=== PATIENT | male | born 1940 | race Caucasian/White ===

== ENCOUNTER 2017-06-24 08:42 | Outpatient (CLI) | payer MEDICARE, BC ==
[2017-06-24 11:25] LABS: Hematocrit 43.9 % (42.0-52.0); Mean Platelet Volume 8.4 fL (7.4-10.4); Red Blood Cell (RBC) Count 4.22 mill/uL (4.70-6.10); White Blood Cell (WBC) Count 8.9 thou/uL (4.8-10.8)
[2017-06-24 11:32] LABS: Prothrombin Time 13.3 SEC (12.0-14.7)
[2017-06-24 11:42] LABS: Bilirubin Negative (Negative); Blood, Urine Negative (Negative); Glucose, Urine (Dipstick) Negative (Negative); Ketone, Urine Negative (Negative); Nitrite Negative (Negative); Protein, Urine (Dipstick) Negative (Neg-Trace); Urobilinogen 0.2 mg/dL (0.2-1.0)
[2017-06-24 11:45] LABS: Bacteria/HPF None Seen HPF (None Seen); Hyaline Casts/LPF 0-3 HYALINE CAST LPF (0-3 Hyaline); Squamous Epithelial None Seen HPF (0-3); WBC/HPF 0-3 HPF (0-3)
[2017-06-24 11:52] LABS: Anion Gap 10 mmol/L (10-20); BUN (Urea Nitrogen) 18 mg/dL (8.4-25.7); Calc. Creatinine Clearance 0 mL/min (70-130); Calcium 9.8 mg/dL (7.8-10.44); Carbon Dioxide 30 mmol/L (23-31); Chloride 103 mmol/L (98-107); Estimated GFR-MDRD 79
--- NOTE | 2017-06-24 12:14 | EKG ---
Test Reason : PREOP Blood Pressure : / mmHG Vent. Rate : 066 BPM Atrial Rate : 066 BPM P-R Int : 186 ms QRS Dur : 134 ms QT Int : 416 ms P-R-T Axes : 056 116 063 degrees QTc Int : 436 ms Sinus rhythm with Possible Left atrial enlargement Right bundle branch block Left posterior fascicular block Bifascicular block Abnormal ECG No previous ECGs available Confirmed by DR. Jim PAIGE ([id number]) on 06/24/2017 12:13:30 PM Referred By: CHARISSE Confirmed By:DR. Jim PAIGE
== END 2017-06-24 08:43 | disposition home or self-care (01) ==
LOC: LABBT 08:42
PROVIDERS: ATTEND Orthopaedic Surgery
DX: Z01.818 Encounter for other preprocedural examination (principal); M16.12 Unilateral primary osteoarthritis, left hip
CPT/HCPCS: 80048; 81001; 85027; 85610; 86850; 86900; 86901; 87081; 93005; 93010

== ENCOUNTER 2018-12-16 15:07 | Outpatient (CLI) | payer MEDICARE, BC ==
--- NOTE | 2018-12-16 16:00 | RAD ---
Exam: 3 views of the lumbosacral spine HISTORY: Bilateral foot numbness, right greater than left. COMPARISON: None FINDINGS: 3 lateral views of the lumbosacral spine shows diffuse intervertebral disc space narrowing and large osteophytes throughout the lumbar spine. Alignment is unchanged with flexion and extension. Posterior facet arthrosis is seen throughout the lumbar spine. IMPRESSION: Severe degenerative changes of the lumbar spine with unchanged alignment with bending
--- NOTE | 2018-12-16 16:49 | MRI ---
MRI LUMBAR SPINE NONCONTRAST: CLINICALLY INDICATIONS: Lumbar stenosis. Neurogenic claudication. FINDINGS: There is prominent marrow edema involving the inferior one-half of the L3 vertebral body and the supe rior one-half of the L4 vertebral body. No intervening disk space fluid is present. There is genera lized diminished T1 and T2 signal of the intervening L3-L4 disk space. Multilevel facet arthropathy is present bilaterally, moderate to severe in degree. There is an S-shaped curvature of the lumbar s pine, convexed to the left superiorly and to the right inferiorly. The conus medullaris terminates a t the T12-L1 level. L5-S1: Broad-based disk osteophyte is present. There is mild narrowing of the central canal. Mild left neural foraminal stenosis is present. There is no significant right foraminal compromise. L4-L5: Moderate central canal stenosis is present, as a result of broad-based disk osteophyte, when combined with bilateral facet hypertrophy. There is impingement of the traversing left L5 nerve root , with prominent stenosis of the left subarticular zone. There is also impingement of the traversing right L5 nerve root. There is moderate left and mild right neural foraminal narrowing. L3-L4: Severe central canal stenosis is present due to broad-based disk osteophyte and bilateral fac et hypertrophy. There is moderate bilateral neural foraminal stenosis. L2-L3: Moderate central canal stenosis is present, more notable on the right, due to broad-based dis k osteophyte, prominence of epidural fat, and facet osteoarthritis. There is crowding of the chip ing right L3 nerve root, as well. Mild to moderate right and mild left neural foraminal narrowing is present. L1-L2: There is mild central canal stenosis, more notable to the right due to scoliotic curvature, w ith crowding of the nerve roots of the cauda equina, localizing to the right subarticular zone. Ther e is mild left and mild to moderate right neural foraminal narrowing. T12-L1: There is prominent height loss of the T12-L1 disk space with apparent partial osseous fusion of the vertebra, to the right of midline. IMPRESSION: Severe multilevel degenerative change of the lumbar spine. Findings are most pronounced at the L3-L4 level, where there is obliteration of the thecal sac. A telephone call of these findings was placed to the patient's physician, Vinny Rodriguez, at the time of dictation ([id number] hours). CODE CR POS: OFF
== END 2018-12-16 15:08 | disposition home or self-care (01) ==
LOC: TBSIIMAG 15:07
PROVIDERS: ATTEND Anesthesiology Pain Medicine
DX: M48.062 Spinal stenosis, lumbar region with neurogenic claudication (principal); M47.816 Spondylosis without myelopathy or radiculopathy, lumbar region
CPT/HCPCS: 72100; 72148

== ENCOUNTER 2019-02-08 10:20 | Outpatient (CLI) | payer MEDICARE, BC ==
[2019-02-08 13:32] LABS: Hemoglobin 14.2 g/dL (14.0-18.0); Mean Corpuscular HGB CONC 33.5 g/dL (32.0-36.0); Mean Corpuscular Hemoglobin 33.9 pg (27.0-31.0); Mean Platelet Volume 8.7 fL (7.4-10.4); Platelet Count 210 thou/uL (130-400); RBC Distribution Width 11.8 % (11.5-14.5); Red Blood Cell (RBC) Count 4.19 mill/uL (4.70-6.10); White Blood Cell (WBC) Count 7.5 thou/uL (4.8-10.8)
[2019-02-08 13:59] LABS: Anion Gap 12 mmol/L (10-20); BUN (Urea Nitrogen) 16 mg/dL (8.4-25.7); Calc. Creatinine Clearance 0 mL/min (70-130); Calcium 9.6 mg/dL (7.8-10.44); Carbon Dioxide 27 mmol/L (23-31); Chloride 105 mmol/L (98-107); Estimated GFR-MDRD 75; Glucose 94 mg/dL (83-110); Potassium 4.4 mmol/L (3.5-5.1); Sodium 140 mmol/L (136-145)
== END 2019-02-08 10:21 | disposition home or self-care (01) ==
LOC: LABBT 10:20
PROVIDERS: ATTEND Neurological Surgery
DX: Z01.818 Encounter for other preprocedural examination (principal); M48.062 Spinal stenosis, lumbar region with neurogenic claudication
CPT/HCPCS: 80048; 85027; 93005; 93010

== ENCOUNTER 2019-02-10 05:31 | Day surgery (SDC) | payer MEDICARE, BC ==
[2019-02-08 10:59] VITALS: BMI 28.3
--- NOTE | 2019-02-09 13:18 | HP ---
HISTORY OF PRESENT ILLNESS: Mr. Kumar is a 78-year-old man, presenting today for evaluation of severe lower back pain as well as neurogenic claudication symptoms with an MRI from [place] that reveals severe spinal canal stenosis at L3-L4 as well as significant lumbar scoliosis. He has been seeing Dr. Rodriguez, who provided epidural injections and facet blocks with limited relief and was referred back to us for surgical evaluation, which he would like to pursue if possible. PAST MEDICAL HISTORY: Significant for knee and hip osteoarthritis, prostate cancer. CURRENT MEDICATIONS: Include; 1. Aspirin. 2. Resveratrol. 3. Lutein. 4. Bicalutamide. 5. Rosuvastatin. ALLERGIES: NO KNOWN DRUG ALLERGIES. PAST SURGICAL HISTORY: Skin cancer resection, prostatectomy, tonsil and adenoidectomy, parathyroidectomy, vasectomy, and a left total hip replacement. PHYSICAL EXAMINATION: He is alert and oriented x3. Gait is mildly antalgic. Lower extremity motor exam is normal. Reflexes equal and present bilaterally at the patella. ASSESSMENT: Lumbar spinal stenosis with neurogenic claudication. PLAN: Dr. Wolfe met with the patient, reviewed imaging, advocated for an L3-L4 decompression. He explained to the patient the risks, benefits, and alternatives to the procedure. The patient expressed understanding and elected to move forward with surgery as discussed. I do believe the patient is mentally competent and capable of making medical decisions for himself, and we will move with surgery as planned. Job ID: [id number]
[2019-02-10] MEDS ORDERED: Thrombin 5000 UNITS/5 ML VIAL ONE (06:16)
[2019-02-10] MEDS ORDERED: Bupivacaine HCl 0.5%/Epinephrine 1:200,000/PF 30 ml Vial ONE (06:16)
[2019-02-10] MEDS ORDERED: Fentanyl 100 MCG/2 ML VIAL ONE ×2 (06:17→08:39)
[2019-02-10] MEDS ORDERED: Lidocaine 2% Jelly 5 ML TUBE ONE (06:17)
[2019-02-10] MEDS ORDERED: Tamsulosin HCl 0.4 MG CAP ONE (08:39)
--- NOTE | 2019-02-10 10:00 | OP ---
DATE OF PROCEDURE: 02/10/2019 DIRECTOR FIN[employer]CIAL SERVICES: Kannan Chauhan PA-C INDICATIONS FOR PROCEDURE: Pain. DIAGNOSIS: Lumbar stenosis with neurogenic claudication. PROCEDURE PERFORMED: L3-4 lumbar decompression. ANESTHESIA: General. DESCRIPTION OF PROCEDURE: The patient was brought into the operating room and placed under general anesthesia. He was flipped from the supine to prone position on the operating room table. A linear incision was planned over the L3-4 segment. After prepping and draping and after an appropriate operative pause, the incision was created. The soft tissues were swept away from midline. A self-retaining retractor was placed for optimal exposure. After confirming the appropriate level with C-arm fluoroscopy, an Adson rongeur, a high-speed cutting drill bit, and 2, 3 and 4 mm Kerrisons were used to perform a laminectomy along the inferior aspect of L3 and the superior aspect of L4. The laminectomy was extended laterally to encompass the medial aspect of the facet joints. The lateral recesses were decompressed as well as the central canal. After the decompression, the wound was irrigated. Hemostasis was maintained throughout. The wound was then closed in anatomic layers and a pressure dressing was applied. There were no known procedural complications. Job ID: [id number]
== END 2019-02-10 12:00 | disposition home or self-care (01) ==
LOC: SDC 05:31
PROVIDERS: ATTEND Neurological Surgery
PROC: 01NB0ZZ Release Lumbar Nerve, Open Approach (ICD-10-PCS; principal; 2019-02-10)
DX: M48.062 Spinal stenosis, lumbar region with neurogenic claudication (principal); M41.9 Scoliosis, unspecified; Z79.82 Long term (current) use of aspirin; Z79.899 Other long term (current) drug therapy
CPT/HCPCS: 76000; J0131; J0670; J0690; J3010

== ENCOUNTER 2020-11-20 08:32 | Outpatient (CLI) | payer MEDICARE, BC ==
[2020-11-20] MEDS ORDERED: Iopamidol 370 76% 50 ML VIAL FS ONE (14:06)
[2020-11-20] MEDS ORDERED: Iopamidol 370 76% 100 ML VIAL ONE (14:06)
== END 2020-11-20 08:33 | disposition home or self-care (01) ==
LOC: CT 08:32
PROVIDERS: ATTEND Urology
DX: C61 Malignant neoplasm of prostate (principal); Z98.890 Other specified postprocedural states
CPT/HCPCS: 74178; 78306; 82565; A9503; Q9967

== ENCOUNTER 2021-12-20 08:23 | Outpatient (CLI) | payer MEDICARE, BC ==
[2021-12-20] MEDS ORDERED: Iopamidol 370 76% 100 ML VIAL ONE (14:22)
== END 2021-12-20 08:24 | disposition home or self-care (01) ==
LOC: CT 08:23
PROVIDERS: ATTEND Internal Medicine Hematology & Oncology
DX: C61 Malignant neoplasm of prostate (principal); C79.51 Secondary malignant neoplasm of bone
CPT/HCPCS: 71260; 74177; 78306; A9503; Q9967

== ENCOUNTER 2021-12-26 10:26 | Outpatient (CLI) | payer MEDICARE, BC ==
[2021-12-26 21:44] LABS: SARS-CoV-2 PCR by NAA Not Detected (NotDetected)
== END 2021-12-26 10:27 | disposition home or self-care (01) ==
LOC: LABBT 10:26
PROVIDERS: ATTEND Internal Medicine Hematology & Oncology
DX: C61 Malignant neoplasm of prostate (principal); C79.89 Secondary malignant neoplasm of other specified sites; Z20.822 Contact with and (suspected) exposure to COVID-19
CPT/HCPCS: U0003; U0005

== ENCOUNTER 2021-12-31 08:33 | Day surgery (SDC) | payer MEDICARE, BC ==
[2021-12-27 14:09] VITALS: BMI 28.7
[2021-12-31 08:59] LABS: #Eosinphils 0.2 thou/uL (0.0-0.7); #Monocytes 0.6 thou/uL (0.11-0.59); #Neutrophils 5.2 thou/uL (1.40-6.50); %Basophils 0.3 % (0.0-1.0); %Eosinophils 3.2 % (0.0-10.0); %Lymphocytes 14.3 % (21.0-51.0); %Monocytes 8.4 % (0.0-10.0); %Neutrophils 73.9 % (42.0-75.0); Hemoglobin 14.1 g/dL (14.0-18.0); Mean Corpuscular HGB CONC 33.7 g/dL (32.0-36.0); Mean Platelet Volume 7.2 fL (7.4-10.4); Platelet Count 230 thou/uL (130-400); RBC Distribution Width 11.6 % (11.5-14.5); Red Blood Cell (RBC) Count 4.03 mill/uL (4.70-6.10); White Blood Cell (WBC) Count 7.1 thou/uL (4.8-10.8)
[2021-12-31 09:15] LABS: INR-International Normal Ratio 0.9; Prothrombin Time 12.6 sec (12.0-14.7)
[2021-12-31 11:43] VITALS: BP 132/74; TEMP 97.6
== END 2021-12-31 11:50 | disposition home or self-care (01) ==
LOC: CT 08:33
PROVIDERS: ATTEND Internal Medicine Hematology & Oncology
PROC: 0QB23ZX Excision of Right Pelvic Bone, Percutaneous Approach, Diagnostic (ICD-10-PCS; principal; 2021-12-31)
DX: C79.51 Secondary malignant neoplasm of bone (principal); C61 Malignant neoplasm of prostate; C44.222 Squamous cell carcinoma of skin of right ear and external auricular canal; Z87.891 Personal history of nicotine dependence; Z79.82 Long term (current) use of aspirin; Z79.899 Other long term (current) drug therapy
CPT/HCPCS: 20225; 77012; 85025; 85610; 85730; 88307

== ENCOUNTER 2022-04-16 09:30 | Outpatient (CLI) | payer MEDICARE, BC | END 2022-04-16 09:31 | disposition home or self-care (01) | LOC: PET 09:30 | PROVIDERS: ATTEND Internal Medicine Hematology & Oncology | DX: C79.51 Secondary malignant neoplasm of bone (principal); C44.221 Squamous cell carcinoma of skin of unspecified ear and external auricular canal | CPT/HCPCS: 78815; A9552 ==

== ENCOUNTER 2022-12-17 14:09 | Outpatient (CLI) | payer MEDICARE, BC ==
[2022-12-17] MEDS ORDERED: Magnevist 469MG/ML 20 ML VIAL ONE (15:08)
== END 2022-12-17 14:10 | disposition home or self-care (01) ==
LOC: MRI 14:09
PROVIDERS: ATTEND Psychiatry & Neurology Neurology
DX: R56.9 Unspecified convulsions (principal); J34.89 Other specified disorders of nose and nasal sinuses
CPT/HCPCS: 70553; 95816; 95957

== ENCOUNTER 2023-04-07 14:46 | Outpatient (CLI) | payer MEDICARE, BC | END 2023-04-07 14:47 | disposition home or self-care (01) | LOC: ULT 14:46 | PROVIDERS: ATTEND Family Medicine | DX: M79.661 Pain in right lower leg (principal); M79.662 Pain in left lower leg | CPT/HCPCS: 93922; 93923 ==